=== PATIENT | female | born 1940 | race Caucasian/White ===

== ENCOUNTER → 2018-10-05 | Outpatient (CLI) | payer MEDICARE, OTHER ==
--- NOTE | 2018-10-05 13:48 | Diagnostic Imaging Report ---
INDICATION: Pain in the middle finger. COMPARISON: None. FINDINGS: Three views of the left hand show no fractures, dislocations, or other acute bony abnormalities. The joint spaces are well maintained throughout. There does appear to be asymmetric soft tissue swelling of the third digit. No unexpected radiopaque foreign bodies are seen. Note is made of moderate osteoarthritic changes at the first carpometacarpal joint space. IMPRESSION: 1. Asymmetric soft tissue swelling of the third digit of the left hand but no evidence of underlying acute fracture or dislocation. 2. Moderate osteoarthritic changes at the first carpometacarpal joint space. Dictated by: Dictated on workstation # [id number]
== END ==
LOC: RAD FS 13:20
PROVIDERS: ATTEND Nurse Practitioner
DX: M19.042 Primary osteoarthritis, left hand (principal); M79.89 Other specified soft tissue disorders; M65.332 Trigger finger, left middle finger
CPT/HCPCS: 73130

== ENCOUNTER 2022-02-27 11:53 | Emergency (ER) | payer MEDICARE, OTHER ==
[~2022-02-27] VITALS: Ht 165 cm; Wt 91.0 kg
--- NOTE | 2022-02-27 12:29 | ED Head Injury ---
General Chief Complaint: Head/Cervical Problems Stated Complaint: FALL; HEAD INJ; DIZZINESS Source: patient Exam Limitations: no limitations History of Present Illness Date Seen by Provider: Feb 27, 2022 Time Seen by Provider: 12:00 Initial Comments Patient is a 81 yo female who presents with persistent dizziness and after tripping and falling hit her head on grass 5 days ago. Patient reports dizziness upon standing, and impaired concentration. No LOC, or neck pain. Reports mild nausea, chills and sweats. Patient was seen at the [facility] prior to the ED and diagnosed with a UTI and referred to the ED for additional evaluation. Occurred: just prior to arrival Severity: mild Location: other Method of Injury: other Associated Systoms: Other Allergies and Home Medications Patient Home Medication List Home Medication List Reviewed: Yes Review of Systems Review of Systems Constitutional: see HPI Eyes: See HPI Ears, Nose, Mouth, Throat: see HPI Respiratory: see HPI Cardiovascular: see HPI Gastrointestinal: see HPI Genitourinary: see HPI Musculoskeletal: see HPI Skin: see HPI Psychiatric/Neurological: See HPI Endocrine: See HPI Hematologic/Lymphatic: See HPI All Other Systems Reviewed Negative Unless Noted: Yes Past Wkpxtxt-Bornyb-Gljpey Hx Patient Social History Tobacco Use?: No Use of E-Cig and/or Vaping dev: No Substance use?: No Alcohol Use?: No Pt feels they are or have been: No Immunizations Up To Date First/Initial COVID19 Vaccinat: 2020 Second COVID19 Vaccination Cas: 2020 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 oz. kg; 33.00 BMI Method: General Appearance: WD/WN, no apparent distress HEENT: PERRL/EOMI, normal ENT inspection, pharynx normal Neck: non-tender, full range of motion, supple Cardiovascular: normal peripheral pulses, regular rate, rhythm Respiratory: chest non-tender, lungs clear Gastrointestinal: non tender, soft Back: no CVA tenderness Psychiatric: alert, oriented x 3 Motor/Sensory: no motor deficit, no sensory deficit Progress/Results/Core Measures Results/Orders Lab Results Laboratory Tests Test 02/27/22 12:21 Range/Units White Blood Count 11.6 H 4.3-11.0 10^3/uL Red Blood Count 4.61 3.80-5.11 10^6/uL Hemoglobin 14.4 11.5-16.0 g/dL Hematocrit 41 35-52 % Mean Corpuscular Volume 90 80-99 fL Mean Corpuscular Hemoglobin 31 25-34 pg Mean Corpuscular Hemoglobin Concent 35 32-36 g/dL Red Cell Distribution Width 13.5 10.0-14.5 % Platelet Count 225 130-400 10^3/uL Mean Platelet Volume 10.1 9.0-12.2 fL Immature Granulocyte % (Auto) 1 % Neutrophils (%) (Auto) 78 H 42-75 % Lymphocytes (%) (Auto) 10 L 12-44 % Monocytes (%) (Auto) 11 0-12 % Eosinophils (%) (Auto) 0 0-10 % Basophils (%) (Auto) 0 0-10 % Neutrophils # (Auto) 9.1 H 1.8-7.8 10^3/uL Lymphocytes # (Auto) 1.2 1.0-4.0 10^3/uL Monocytes # (Auto) 1.2 H 0.0-1.0 10^3/uL Eosinophils # (Auto) 0.0 0.0-0.3 10^3/uL Basophils # (Auto) 0.0 0.0-0.1 10^3/uL Immature Granulocyte # (Auto) 0.1 0.0-0.1 10^3/uL Sodium Level 136 135-145 MMOL/L Potassium Level 3.8 3.6-5.0 MMOL/L Chloride Level 98 98-107 MMOL/L Carbon Dioxide Level 24 21-32 MMOL/L Anion Gap 14 5-14 MMOL/L Blood Urea Nitrogen 22 H 7-18 MG/DL Creatinine 1.38 H 0.60-1.30 MG/DL Estimat Glomerular Filtration Rate 39 BUN/Creatinine Ratio 16 Glucose Level 174 H 70-105 MG/DL Calcium Level 10.2 H 8.5-10.1 MG/DL Corrected Calcium 10.4 H 8.5-10.1 MG/DL Total Bilirubin 0.8 0.1-1.0 MG/DL Aspartate Amino Transf (AST/SGOT) 16 5-34 U/L Alanine Aminotransferase (ALT/SGPT) 18 0-55 U/L Alkaline Phosphatase 91 40-136 U/L Total Protein 7.3 6.4-8.2 GM/DL Albumin 3.8 3.2-4.5 GM/DL My Orders Orders - JORGE KURTZ DO Ct Head Wo (02/27/22 12:14) Cbc With Automated Diff (02/27/22 12:14) Comprehensive Metabolic Panel (02/27/22 12:14) Vital Signs/I&O 02/27/22 11:58 Temp 35.7 Pulse 87 Resp 18 B/P (MAP) 119/42 (67) Pulse Ox 97 O2 Delivery Room Air Blood Pressure Mean: 67 Departure Communication (Admissions) CT head: No acute findings per radiology report. Calcification site is concerning for possible fungal infection. Patient with nondescript dizziness and disequilibrium without focal neurologic deficits after minor head injury 4 days ago. Symptoms are consistent with concussion syndrome. Will obtain CT to rule out subdural hemorrhage, basic lab work. Anticipate discharge home pending results with treatment of urinary tract infection and postconcussion syndrome. Impression Primary Impression: Postconcussion syndrome Additional Impression: Urinary tract infection Disposition: 01 HOME, SELF-CARE Condition: Stable Departure-Patient Inst. Decision time for Depature: 13:01 Referrals: CONNIE ALBERTO MD (PCP) Primary Care Physician Patient Instructions: Urinary Tract Infection, Adult ED Add. Discharge Instructions: You were evaluated in the emergency department for dizziness, chills and sweats. Your symptoms are consistent with urinary tract infection. CT and lab were obtained. CT findings do show a possible fungal infection in your sinuses. This will require close follow-up and referral to an ENT surgeon. In the meantime, please increase fluids and take previously prescribed antibiotics as directed. Follow-up with your PCP in 3 to 5 days for reevaluation. Return to the ED if new or worsening symptoms. All discharge instructions reviewed with patient and/or family. Voiced understanding. JORGE KURTZ DO Feb 27, 2022 12:29
[2022-02-27 12:34] LABS: BASOPHILS % (AUTO) 0 % (0-10); EOSINOPHILS % (AUTO) 0 % (0-10); HEMATOCRIT 41 % (35-52); HEMOGLOBIN 14.4 g/dL (11.5-16.0); LYMPHOCYTES # (AUTO) 1.2 10^3/uL (1.0-4.0); LYMPHOCYTES % (AUTO) 10 % (12-44); MEAN CORPUSCULAR HEMOGLOBIN 31 pg (25-34); MEAN CORPUSCULAR HGB CONC 35 g/dL (32-36); MEAN CORPUSCULAR VOLUME 90 fL (80-99); MEAN PLATELET VOLUME 10.1 fL (9.0-12.2); MONOCYTES # (AUTO) 1.2 10^3/uL (0.0-1.0); MONOCYTES % (AUTO) 11 % (0-12); NEUTROPHILS # (AUTO) 9.1 10^3/uL (1.8-7.8); NEUTROPHILS % (AUTO) 78 % (42-75); PLATELET COUNT 225 10^3/uL (130-400); WHITE BLOOD COUNT 11.6 10^3/uL (4.3-11.0)
--- NOTE | 2022-02-27 12:50 | Diagnostic Imaging Report ---
PROCEDURE: CT head without contrast. TECHNIQUE: Multiple contiguous axial images were obtained through the brain without the use of intravenous contrast. Auto Exposure Controls were utilized during the CT exam to meet ALARA standards for radiation dose reduction. INDICATION: Fall, hit right side of head. Pain. FINDINGS: The ventricles and cortical gyral pattern appear normal. There is no intracranial hemorrhage. No mass effect. No extra-axial fluid collection. Basal cisterns are clear. The CP angles appear normal. The pituitary is not enlarged. There is noted opacification left maxillary sinus. The mastoid air cells are clear. No calvarial fractures or lytic bony lesions. There is hyperostosis frontalis. IMPRESSION: 1. No acute intracranial abnormalities. 2. Opacification left maxillary sinus which does contain some calcification which suggests chronicity perhaps a fungal infection. Dictated by: Dictated on workstation # [id number]
[2022-02-27 12:52] LABS: CREATININE SERUM 1.38 MG/DL (0.60-1.30); POTASSIUM 3.8 MMOL/L (3.6-5.0)
[2022-02-27 12:53] LABS: ALBUMIN 3.8 GM/DL (3.2-4.5); BILIRUBIN,TOTAL 0.8 MG/DL (0.1-1.0); CALCIUM 10.2 MG/DL (8.5-10.1); TOTAL PROTEIN 7.3 GM/DL (6.4-8.2)
[2022-02-27 13:15] VITALS: BP 119/42
== END 2022-02-27 13:16 | disposition home or self-care (01) ==
LOC: EDUNIT# 11:53 → ER FS 11:55
DX: F07.81 Postconcussional syndrome (principal); N39.0 Urinary tract infection, site not specified
CPT/HCPCS: 36415; 70450; 80053; 85025

== ENCOUNTER → 2022-04-16 | Outpatient (CLI) | payer MEDICARE, OTHER ==
--- NOTE | 2022-04-16 16:56 | Diagnostic Imaging Report ---
PROCEDURE: CT sinuses without contrast TECHNIQUE: Multiple contiguous axial images were obtained through the sinuses without the use of intravenous contrast. Coronal and sagittal reformations were then performed. Auto Exposure Controls were utilized during the CT exam to meet ALARA standards for radiation dose reduction. INDICATION: Maxillary sinus disease with decreased taste and smell. COMPARISON: 02/27/2022 There has been worsening of left maxillary sinus disease with complete opacification now present. There is also high density material which could represent calcification. No definite bone destruction is identified. There is hyperostosis of the left maxillary sinus. The remainder of the paranasal sinuses are clear. Mastoid air cells and middle ear cavities are also unremarkable. There is hyperostosis frontalis interna. IMPRESSION: Worsening chronic left maxillary sinus disease. The presence of calcification can indicate atypical infection such as fungal variety. Dictated by: Dictated on workstation # [id number]
== END ==
LOC: RAD FS 11:29
PROVIDERS: ATTEND Otolaryngology Otolaryngology/Facial Plastic Surgery
DX: J32.0 Chronic maxillary sinusitis (principal); R43.9 Unspecified disturbances of smell and taste
CPT/HCPCS: 70486

== ENCOUNTER → 2023-03-03 | Outpatient (CLI) | payer MEDICARE, OTHER ==
--- NOTE | 2023-03-03 11:44 | Diagnostic Imaging Report ---
CLINICAL INDICATION: Followup chronic left sinusitis with fungal infection. EXAM: Axial CT scan of the maxillofacial structures without IV contrast . Coronal and sagittal reformations were performed. Auto Exposure Controls were utilized during the CT exam to meet ALARA standards for radiation dose reduction. COMPARISON: CT scan of the sinuses without contrast dated 08/16/2021. FINDINGS: PARANASAL SINUSES: FRONTAL: Unremarkable. ETHMOID: There is interval development of minimal mucosal thickening. MAXILLARY: There is complete consolidation left maxillary sinus. There is small amount of high density within the left maxillary sinus which is stable. There is stable chronic bony thickening/sclerosis in left maxillary sinus related to chronic sinusitis changes. The left infundibulum is occluded. SPHENOID: Unremarkable. OTHER PARANASAL SINUS FINDINGS: None. NASAL SEPTUM: There is stable mild left curvature of the nasal septal region. VISUALIZED TEMPORAL BONE STRUCTURES: Unremarkable. BONY STRUCTURES: Hypertrophic frontalis internus is noted. EXTRACRANIAL SOFT TISSUE/ ORBITS: Unremarkable. IMPRESSION: 1: Stable appearance of the left maxillary sinus with consolidation and amorphous high density within it. These findings may represent concretions and fungal elements may also be considered. There are no bony erosive or destructive changes seen. 2: There is interval development of minimal ethmoid sinus mucosal thickening Dictated by: Dictated on workstation # [id number]
== END ==
LOC: RAD FS 09:43
PROVIDERS: ATTEND Otolaryngology Otolaryngology/Facial Plastic Surgery
DX: J32.8 Other chronic sinusitis (principal)
CPT/HCPCS: 70486

== ENCOUNTER → 2023-04-29 | Outpatient (CLI) | payer MEDICARE, OTHER ==
[~2023-04-29] MED LIST: CATHETER FLUSH 10 ML SYR IVP PRN; REGADENOSON 0.4 MG/5 ML SYR IV ONE
[2023-04-29 13:09] VITALS: BP 133/87
--- NOTE | 2023-05-01 13:09 | STRESS TEST ---
DATE OF SERVICE: 04/29/2023 RESTING AND POST REGADENOSON TECHNETIUM-99M TETROFOSMIN SPECT CT IMAGING ORDERING PHYSICIAN: Bee Toure MD; ISABEL; MANISH; SG; PRIMARY PHYSICIAN: Dr. Forte. CLINICAL DIAGNOSIS: Coronary artery disease. Baseline images were carried out after injection of 10.96 mCi technetium-99m tetrofosmin. This was followed by 0.4 mg regadenoson and 31 mCi technetium-99m tetrofosmin for stress imaging. The electrocardiogram showed atrial fibrillation throughout the study. It did not change significantly with the regadenoson infusion. Review of images at rest and following stress does not indicate any distinct perfusion defects consistent with significant myocardial ischemia or infarction. Gated images show normal global left ventricular systolic function with normal regional wall motion. Left ventricular ejection fraction is calculated to be 72%. Left ventricular end-diastolic volume is 54 mL. TID is absent (1.11). CONCLUSIONS: 1. No evidence of any significant myocardial ischemia or infarction on this study. 2. Normal regional wall motion. 3. Normal global systolic function with a calculated ejection fraction of 72%. Job ID: [id number] DocumentID: [id number] Dictated Date: 05/01/2023 09:27:25 Pellet Machine Operator Date: 05/01/2023 13:07:00 Dictated By: BEE TOURE MD; ISABEL; MANISH; SG;
== END ==
LOC: CARD 11:13
PROVIDERS: ATTEND Internal Medicine Cardiovascular Disease
DX: I25.10 Atherosclerotic heart disease of native coronary artery without angina pectoris (principal)
CPT/HCPCS: 78452; 93017; A9502